=== PATIENT | male | born 1935 | race Caucasian/White ===

== ENCOUNTER 2021-01-18 06:15 | Inpatient (IN) | payer MEDICARE, BC ==
[~2021-01-18] VITALS: Ht 177.8 cm; Wt 69.9 kg
[~2021-01-18 06:15] MED LIST: TRIA75TA55 PO
[2021-01-18] MEDS ORDERED: SODIUM CHLORIDE 0.9% 1,000 ML IV ONE (06:30)
[2021-01-18] MEDS ORDERED: DOCUSATE SOD 100 MG CAP PO ONE (06:30)
[2021-01-18 07:05] LABS: Basophils # (auto) 0 10 ^3/uL (0-0.2); Basophils % (auto) 0.6 % (0.0-2.0); Eosinophils # (auto) 0.2 10 ^3/uL (0-0.8); Hemoglobin 14.9 g/dL (13.5-17.5); Monocytes # (auto) 0.7 10 ^3/uL (0-1.3)
[2021-01-18 07:07] LABS: Eosinophils % (auto) 2.6 % (0.0-7.0); Lymphocytes # (auto) 2.2 10 ^3/uL (0.4-5.4); Lymphocytes % (auto) 29.4 % (10.0-50.0); Mean Corpuscular Hemoglobin 34.5 pg (28.0-32.0); Mean Corpuscular Hgb Conc. 34.7 g/dL (32.0-36.0); Mean Corpuscular Volume 99.3 fL (80.0-100.0); Monocytes % (auto) 9.6 % (0.0-12.0); Neutrophils # (auto) 4.3 10 ^3/uL (1.6-8.6); Neutrophils % (auto) 57.8 % (37.0-80.0); Red Blood Cells 4.33 10^6/uL (4.5-5.90); Red Cell Distribution Width 13.6 % (11.8-14.3); White Blood Cell 7.4 10^3/uL (4.4-10.8)
[2021-01-18 07:28] LABS: Anion Gap 8 (5-15); Blood Urea Nitrogen 18 mg/dL (7-18); Calcium 8.6 mg/dL (8.5-10.1); Carbon Dioxide 26 mmol/L (21-32); Chloride 104 mmol/L (98-107); Glucose 80 mg/dL (74-106); Potassium 4.2 mmol/L (3.5-5.1); Sodium 138 mmol/L (136-145)
[2021-01-18 07:34] LABS: Alanine Aminotransferase 38 U/L (16-61); Alkaline Phosphatase 80 U/L (45-117); Aspartate Aminotransferase 22 U/L (15-37); BUN/Creatinine Ratio 14.6; Bilirubin, Total 0.7 mg/dL (0.2-1.0); GFR African American 72 mL/min; GFR Non-African American 60 mL/min; Total Protein 6.9 g/dL (6.4-8.2)
[2021-01-18] MEDS ORDERED: cefTRIAXone 1GM/50ML D5W 50 ML IV ONE ×2 (09:15→11:00)
[2021-01-18] MEDS ORDERED: metroNIDAZOLE 500MG/100ML 100 ML IV ONE (09:15)
[2021-01-18] MEDS ORDERED: PANTOPRAZOLE 40 MG/10 ML VIAL INJ IV ONE (09:15)
[2021-01-18] MEDS ORDERED: MORPHINE SULFATE INJECTION 2 MG/2 ML SYRG IV PRN ×2 (10:00→11:00)
[2021-01-18] MEDS ORDERED: NITROGLYCERIN 0.4 MG SL TAB SL PRN (10:00)
[2021-01-18] MEDS ORDERED: ONDANSETRON HCL 4 MG/2 ML VIAL IV PRN (11:00)
[2021-01-18] MEDS ORDERED: traMADol HCL 50 MG TAB PO PRN (11:00)
[2021-01-18] MEDS ORDERED: ACETAMINOPHEN 500 MG TAB PO PRN (11:00)
[2021-01-18] MEDS ORDERED: SODIUM CHLORIDE 0.9% 1,000 ML IV SCH (11:00)
[2021-01-18 11:41] VITALS: BP 123/79
[2021-01-18] MEDS ORDERED: metroNIDAZOLE 500MG/100ML 100 ML IV SCH (14:00)
[2021-01-19] MEDS ORDERED: cefTRIAXone 1GM/50ML D5W 50 ML IV SCH (09:00)
[2021-01-19] MEDS ORDERED: PANTOPRAZOLE 40 MG TAB PO SCH (10:00)
[2021-01-19] MEDS ORDERED: ENOXAPARIN SOD 40 MG/0.4 ML SYRINGE SC SCH (10:00)
== END 2021-01-18 13:00 | disposition left against medical advice (07) | DRG 394 ==
LOC: ER 06:15 → EDBD 06:15 → TELE 10:00
PROVIDERS: ADMIT Internal Medicine; ATTEND Internal Medicine
DX: K62.89 Other specified diseases of anus and rectum (principal); K57.92 Diverticulitis of intestine, part unspecified, without perforation or abscess without bleeding; K59.00 Constipation, unspecified; Z20.822 Contact with and (suspected) exposure to COVID-19; I10 Essential (primary) hypertension; Z53.29 Procedure and treatment not carried out because of patient's decision for other reasons; E78.5 Hyperlipidemia, unspecified; N40.0 Benign prostatic hyperplasia without lower urinary tract symptoms; R00.0 Tachycardia, unspecified; G89.29 Other chronic pain; K40.20 Bilateral inguinal hernia, without obstruction or gangrene, not specified as recurrent; K42.9 Umbilical hernia without obstruction or gangrene; N28.1 Cyst of kidney, acquired; R91.1 Solitary pulmonary nodule; Z85.820 Personal history of malignant melanoma of skin
CPT/HCPCS: 36415; 71045; 74176; 80053; 83605; 84484; 85025; 86141; 87040; 87426; 96361; 96365; 96368; 96375; C9113; G0378; J0696; J3490

== ENCOUNTER 2021-01-25 10:35 | Emergency (ER) | payer MEDICARE, BC ==
[~2021-01-25] VITALS: Ht 182.9 cm; Wt 86.2 kg
[2021-01-25 11:49] LABS: Basophils # (auto) 0.1 10 ^3/uL (0-0.2); Basophils % (auto) 0.9 % (0.0-2.0); Eosinophils # (auto) 0.2 10 ^3/uL (0-0.8); Eosinophils % (auto) 2.1 % (0.0-7.0); Hematocrit 40.7 % (41.0-53.0); Hemoglobin 14.1 g/dL (13.5-17.5); Lymphocytes # (auto) 1.2 10 ^3/uL (0.4-5.4); Lymphocytes % (auto) 13.1 % (10.0-50.0); Mean Corpuscular Hemoglobin 33.8 pg (28.0-32.0); Mean Corpuscular Hgb Conc. 34.7 g/dL (32.0-36.0); Mean Corpuscular Volume 97.3 fL (80.0-100.0); Monocytes # (auto) 0.7 10 ^3/uL (0-1.3); Monocytes % (auto) 7.3 % (0.0-12.0); Neutrophils # (auto) 6.9 10 ^3/uL (1.6-8.6); Neutrophils % (auto) 76.6 % (37.0-80.0); Red Blood Cells 4.18 10^6/uL (4.5-5.90); Red Cell Distribution Width 13.7 % (11.8-14.3); White Blood Cell 9.1 10^3/uL (4.4-10.8)
[2021-01-25 12:04] LABS: Albumin 2.9 g/dL (3.4-5.0); Anion Gap 4 (5-15); Blood Urea Nitrogen 28 mg/dL (7-18); Calcium 8.4 mg/dL (8.5-10.1); Carbon Dioxide 29 mmol/L (21-32); Chloride 106 mmol/L (98-107); Glucose 104 mg/dL (74-106); Potassium 3.8 mmol/L (3.5-5.1); Sodium 139 mmol/L (136-145)
[2021-01-25 12:09] LABS: Alanine Aminotransferase 19 U/L (16-61); Alkaline Phosphatase 87 U/L (45-117); Aspartate Aminotransferase 14 U/L (15-37); BUN/Creatinine Ratio 17.8; Bilirubin, Total 0.7 mg/dL (0.2-1.0); GFR African American 55 mL/min; GFR Non-African American 45 mL/min; Total Protein 6.7 g/dL (6.4-8.2)
[2021-01-25] MEDS ORDERED: DOCUSATE SOD 100 MG CAP PO ONE (15:30)
[2021-01-25 16:45] VITALS: BP 132/81
== END 2021-01-25 16:22 | disposition home or self-care (01) ==
LOC: ER 10:35 → EDBD 10:35 → ER 16:22
DX: K59.00 Constipation, unspecified (principal); R06.02 Shortness of breath; E46 Unspecified protein-calorie malnutrition; I10 Essential (primary) hypertension; E78.5 Hyperlipidemia, unspecified; Z68.25 Body mass index [BMI] 25.0-25.9, adult; Z79.899 Other long term (current) drug therapy
CPT/HCPCS: 36415; 71045; 74018; 80053; 84484; 85025

== ENCOUNTER 2024-03-08 18:58 | Inpatient (IN) | payer MEDICARE, BC ==
[~2024-03-08] VITALS: Ht 170.2 cm; Wt 65.1 kg
[~2024-03-08 18:58] MED LIST changes: +ATOR10TA52 PO; +BRIM0.2S17 OP; +LATA0.008 OP; +ONDA-180 PO; +PANT40TA57 PO; +TRIA37.586 PO; +TRIA75TA11 PO
[2024-03-08 19:37] VITALS: PULSE 81; RESP 17; O2SAT 95
[2024-03-08 19:44] LABS: Basophils # (auto) 0 10 ^3/uL (0-0.2); Basophils % (auto) 0.4 % (0.0-2.0); Eosinophils # (auto) 0 10 ^3/uL (0-0.8); Eosinophils % (auto) 0.3 % (0.0-7.0); Hematocrit 44.4 % (41.0-53.0); Hemoglobin 15.4 g/dL (13.5-17.5); Lymphocytes # (auto) 0.9 10 ^3/uL (0.4-5.4); Lymphocytes % (auto) 6.8 % (10.0-50.0); Mean Corpuscular Hemoglobin 33.1 pg (28.0-32.0); Mean Corpuscular Hgb Conc. 34.6 g/dL (32.0-36.0); Mean Corpuscular Volume 95.6 fL (80.0-100.0); Monocytes # (auto) 0.7 10 ^3/uL (0-1.3); Monocytes % (auto) 5.5 % (0.0-12.0); Neutrophils # (auto) 10.9 10 ^3/uL (1.6-8.6); Platelet Count (auto) 149 10^3/uL (140-450); Red Blood Cells 4.64 10^6/uL (4.5-5.90); Red Cell Distribution Width 13.4 % (11.8-14.3); White Blood Cell 12.5 10^3/uL (4.4-10.8)
[2024-03-08 20:01] LABS: Alanine Aminotransferase 17 U/L (7-40); Albumin 3.2 g/dL (3.2-4.8); Alkaline Phosphatase 95 U/L (46-116); Anion Gap 10 (5-15); Aspartate Aminotransferase 31 U/L (13-40); Blood Urea Nitrogen 16 mg/dL (9-23); Calcium 9.1 mg/dL (8.7-10.4); Carbon Dioxide 25 mmol/L (20-31); Chloride 105 mmol/L (98-107); Glucose 106 mg/dL (74-106); Potassium 3.9 mmol/L (3.5-5.1); Sodium 140 mmol/L (136-145); Total Protein 6.1 g/dL (5.7-8.2)
[2024-03-08 20:27] LABS: Lipase 24 U/L (12-53)
[2024-03-08] MEDS: SODIUM CHLORIDE 0.9% 500 ML IVB ONE (21:00)
[2024-03-08 21:35] LABS: INR 1.07 (0.9-1.15); Prothrombin Time 11.3 sec (9.3-11.8)
[2024-03-08 21:54] LABS: Erythrocyte Sedimentation Rate 7 mm/hr (0-20)
[2024-03-08 21:57] LABS: Lactic Acid w/Reflex 2.2 mmol/L (0.4-2.0)
[2024-03-08 22:37] LABS: COVID19 ANTIGEN SOFIA FIA NEGATIVE (NEGATIVE)
[2024-03-08] MEDS: cefTRIAXone 1GM/50ML D5W 50 ML IV ONE (22:45)
[2024-03-08] MEDS: metroNIDAZOLE 500MG/100ML 100 ML IV SCH (22:45)
[2024-03-08] MEDS: SODIUM CHLORIDE 0.9% 1,000 ML IV ONE ×2 (22:45→22:58)
[2024-03-08 23:01] LABS: Free T3 2.6 pg/mL (2.3-4.2)
[2024-03-08 23:02] LABS: Free T4 (Free Thyroxine) 1.05 ng/dL (0.89-1.76)
[2024-03-09] VITALS (7 sets, daily range): BP systolic 90–103; BP diastolic 50–55; PULSE 72–97; RESP 16–18; TEMP 97.6–98.2; O2SAT 93–98
[2024-03-09 00:23] LABS: Urine Bacteria None Seen /hpf (None Seen)
[2024-03-09 00:43] LABS: Amphetamine Screen, Urine Neg (NEGATIVE); Barbiturate Scree,Urine Neg (NEGATIVE); Benzodiazephine Screen, Urine Neg (NEGATIVE); Cocaine Screen, Urine Neg (NEGATIVE); Opiate Scree,Urine Neg (NEGATIVE)
[2024-03-09 00:44] LABS: Cannabinoid Screen, Urine Neg (NEGATIVE); Phencyclidine Screen, Urine Neg (NEGATIVE)
[2024-03-09 00:56] LABS: Urine Blood Negative /uL (Negative); Urine Clarity Clear (Clear); Urine Color Yellow (Yellow); Urine Hyaline Cast MOD /lpf (0 - 2); Urine Mucus FEW (None Seen); Urine Protein, UAD 1+ (Negative); Urine Specific Gravity 1.022 (1.001-1.035); Urine Urobilinogen 2 mg/dL (Negative); Urine WBC 1 /hpf (0 - 3)
[2024-03-09 00:56] LABS: Rapid Influenza A Negative (Negative); Rapid Influenza B Negative (Negative)
[2024-03-09] MEDS ORDERED: TIMO0.5S32 (02:51)
[2024-03-09] MEDS: SODIUM CHLORIDE 0.9% 1,000 ML IV SCH (05:35)
[2024-03-09] MEDS: PANTOPRAZOLE 40 MG/10 ML VIAL INJ IV SCH (05:35)
[2024-03-09 05:47] LABS: Basophils # (auto) 0 10 ^3/uL (0-0.2); Basophils % (auto) 0.3 % (0.0-2.0); Eosinophils # (auto) 0 10 ^3/uL (0-0.8); Eosinophils % (auto) 0.2 % (0.0-7.0); Hematocrit 37.2 % (41.0-53.0); Hemoglobin 12.8 g/dL (13.5-17.5); Lymphocytes # (auto) 1.1 10 ^3/uL (0.4-5.4); Lymphocytes % (auto) 10.1 % (10.0-50.0); Mean Corpuscular Hemoglobin 33.1 pg (28.0-32.0); Mean Corpuscular Hgb Conc. 34.5 g/dL (32.0-36.0); Mean Corpuscular Volume 96.1 fL (80.0-100.0); Monocytes # (auto) 0.6 10 ^3/uL (0-1.3); Monocytes % (auto) 5.3 % (0.0-12.0); Neutrophils # (auto) 9.4 10 ^3/uL (1.6-8.6); Neutrophils % (auto) 84.1 % (37.0-80.0); Platelet Count (auto) 136 10^3/uL (140-450); Red Blood Cells 3.87 10^6/uL (4.5-5.90); Red Cell Distribution Width 13.5 % (11.8-14.3); White Blood Cell 11.2 10^3/uL (4.4-10.8)
[2024-03-09 06:27] LABS: Anion Gap 9 (5-15); Carbon Dioxide 24 mmol/L (20-31); Chloride 109 mmol/L (98-107); Potassium 3.3 mmol/L (3.5-5.1); Sodium 142 mmol/L (136-145)
[2024-03-09 06:28] LABS: Calcium 8.1 mg/dL (8.7-10.4)
[2024-03-09 06:33] LABS: BUN/Creatinine Ratio 11.8 (10.0-20.0); Blood Urea Nitrogen 15 mg/dL (9-23); Glucose 122 mg/dL (74-106)
[2024-03-09] MEDS: POTASSIUM EFFERVESENT TAB 25 MEQ GT ONE (08:15)
[2024-03-09] MEDS ORDERED: POLYETHYLENE GLYCOL 17 GM PWDR PO ONE (09:45)
[2024-03-09] MEDS: ENOXAPARIN SOD 40 MG/0.4 ML SYRINGE SC SCH (10:00)
[2024-03-09] MEDS: ERGOCALCIFEROL 50,000 UNIT(1.25MG) CAP PO SCH (11:50)
[2024-03-09] MEDS: TAMSULOSIN HYDROCHLORIDE 0.4 MG CAP PO ONE (11:50)
[2024-03-09] MEDS: MAGNESIUM SULFATE 1GM/100ML 100 ML IV SCH (11:52)
[2024-03-09] MEDS: POTASSIUM EFFERVESENT TAB 25 MEQ PO ONE (13:50)
[2024-03-09] MEDS: FLEET ENEMA(ADULT) 135 ML PR ONE (17:04)
[2024-03-09] MEDS: POLYETHYLENE GLYCOL 17 GM PWDR PO ONE (17:07)
[2024-03-09] MEDS: TAMSULOSIN HYDROCHLORIDE 0.4 MG CAP PO SCH (18:25)
[2024-03-09] MEDS: ACETAMINOPHEN 500 MG TAB PO PRN (18:25)
[2024-03-09] MEDS: cefTRIAXone 1GM/50ML D5W 50 ML IV SCH (21:00)
[2024-03-10 01:00] VITALS: BP 92/53; PULSE 88; RESP 17; TEMP 98.2; O2SAT 95
[2024-03-10 05:00] VITALS: BP 106/60; PULSE 65; RESP 16; O2SAT 95
[2024-03-10 07:05] LABS: Basophils # (auto) 0 10 ^3/uL (0-0.2); Basophils % (auto) 0.4 % (0.0-2.0); Eosinophils # (auto) 0.1 10 ^3/uL (0-0.8); Eosinophils % (auto) 1.4 % (0.0-7.0); Hematocrit 33.4 % (41.0-53.0); Hemoglobin 11.7 g/dL (13.5-17.5); Lymphocytes # (auto) 1.1 10 ^3/uL (0.4-5.4); Lymphocytes % (auto) 13.3 % (10.0-50.0); Mean Corpuscular Hemoglobin 33.6 pg (28.0-32.0); Mean Corpuscular Volume 95.9 fL (80.0-100.0); Monocytes # (auto) 0.8 10 ^3/uL (0-1.3); Monocytes % (auto) 9.7 % (0.0-12.0); Neutrophils # (auto) 6.2 10 ^3/uL (1.6-8.6); Neutrophils % (auto) 75.2 % (37.0-80.0); Nucleated Red Blood Cells % 0.1 %; Platelet Count (auto) 122 10^3/uL (140-450); Red Blood Cells 3.48 10^6/uL (4.5-5.90); Red Cell Distribution Width 13.5 % (11.8-14.3); White Blood Cell 8.2 10^3/uL (4.4-10.8)
[2024-03-10 07:27] LABS: Anion Gap 5 (5-15); Carbon Dioxide 26 mmol/L (20-31); Chloride 111 mmol/L (98-107); Potassium 3.4 mmol/L (3.5-5.1); Sodium 142 mmol/L (136-145)
[2024-03-10 07:33] LABS: BUN/Creatinine Ratio 11.2 (10.0-20.0); Blood Urea Nitrogen 12 mg/dL (9-23); Glucose 92 mg/dL (74-106)
[2024-03-10 08:44] VITALS: BP 102/59; PULSE 76; RESP 18; TEMP 97.9; O2SAT 94
[2024-03-10 09:00] VITALS: BP 102/59; PULSE 76; RESP 18; TEMP 97.9; O2SAT 94
[2024-03-10] MEDS: POTASSIUM EFFERVESENT TAB 25 MEQ PO ONE (10:33)
[2024-03-10 17:00] VITALS: BP 99/61; PULSE 69; RESP 16; TEMP 97.8; O2SAT 95
[2024-03-11 07:10] VITALS: BP 104/57; PULSE 72; RESP 18; TEMP 97.9; O2SAT 91
[2024-03-11 08:00] VITALS: PULSE 62; RESP 17; O2SAT 96
[2024-03-11 09:00] VITALS: BP 115/74; PULSE 62; RESP 17; TEMP 97.8; O2SAT 96
[2024-03-11] MEDS: LACTULOSE 20Gm/30ML SOLN PO ONE (11:03)
[2024-03-11] MEDS: FLEET ENEMA(ADULT) 135 ML PR ONE (11:03)
[2024-03-11 12:30] VITALS: BP 126/77; PULSE 69; RESP 20; TEMP 97.8; O2SAT 97
[2024-03-11 16:46] VITALS: BP 122/79; PULSE 96; RESP 18; TEMP 98.1; O2SAT 95
[2024-03-11 21:00] VITALS: BP 112/78; PULSE 100; RESP 18; TEMP 97.7; O2SAT 98
[2024-03-12 05:00] VITALS: BP 103/58; PULSE 94; RESP 18; O2SAT 92
[2024-03-12 09:00] VITALS: BP 116/61; PULSE 91; RESP 18; TEMP 98.4; O2SAT 91
[2024-03-12] MEDS ORDERED: KET2TP TOP (10:35)
[2024-03-12] MEDS ORDERED: ERGO1CAP23 PO (10:35)
[2024-03-12] MEDS ORDERED: CEPH250C PO (10:35)
[2024-03-12] MEDS: KETOCONAZOLE 2 % TOPICAL CREAM 15GM TOP SCH (11:37)
[2024-03-12] MEDS: diphenhdrAMINE HCL 12.5 MG/5 ML UD PO ONE (11:37)
[2024-03-12 12:53] VITALS: BP 117/65; PULSE 53; RESP 18; TEMP 97.3; O2SAT 96
[2024-03-12] MEDS ORDERED: LACT10SO3 PO (14:28)
[2024-03-12 17:00] VITALS: BP 132/65; PULSE 92; RESP 21; TEMP 98.2; O2SAT 97
[2024-03-12 21:00] VITALS: BP 123/75; PULSE 89; RESP 20; TEMP 97.7; O2SAT 95
[2024-03-13 01:00] VITALS: BP 132/77; PULSE 83; RESP 20; O2SAT 93
[2024-03-13 05:00] VITALS: BP_SYST 111; BP_SYST 134; BP_DIAS 71; BP_DIAS 74; PULSE 75; PULSE 91; RESP 18; TEMP 98.3; O2SAT 92; O2SAT 95
[2024-03-13 09:00] VITALS: BP 140/72; PULSE 92; RESP 16; TEMP 98.2; O2SAT 96
[2024-03-13] MEDS: HYDROcodone-ACET 5/325MG TAB PO PRN (09:17)
[2024-03-13 17:40] VITALS: BP 132/72; PULSE 87; RESP 14; TEMP 98.4; O2SAT 95
[2024-03-13 20:00] VITALS: PULSE 89; RESP 20; O2SAT 95
[2024-03-14 09:00] VITALS: BP 119/65; PULSE 122; RESP 18; O2SAT 94
[2024-03-14] MEDS: CEFPODOXIME PROXETIL 200 MG TAB PO SCH (10:00)
[2024-03-14] MEDS: metroNIDAZOLE 500 MG TAB PO SCH (13:59)
[2024-03-14] MEDS: ONDANSETRON ODT 4 MG TAB PO PRN (16:03)
[2024-03-14 20:00] VITALS: PULSE 83; RESP 16; O2SAT 97
[2024-03-14] MEDS: diphenhdrAMINE HCL 12.5 MG/5 ML UD PO PRN (20:15)
[2024-03-14 22:00] VITALS: BP 121/82; PULSE 83; RESP 16; TEMP 97.8; O2SAT 97
[2024-03-15] VITALS (7 sets, daily range): BP systolic 110–126; BP diastolic 66–78; PULSE 60–79; RESP 16–18; TEMP 97.5–98.3; O2SAT 94–96
[2024-03-15] MEDS: PANTOPRAZOLE 40 MG TAB PO SCH (06:00)
[2024-03-15 07:40] LABS: Basophils # (auto) 0.1 10 ^3/uL (0-0.2); Basophils % (auto) 0.8 % (0.0-2.0); Eosinophils # (auto) 0.2 10 ^3/uL (0-0.8); Eosinophils % (auto) 2.6 % (0.0-7.0); Hematocrit 35.8 % (41.0-53.0); Hemoglobin 12.6 g/dL (13.5-17.5); Lymphocytes # (auto) 1.6 10 ^3/uL (0.4-5.4); Lymphocytes % (auto) 20.8 % (10.0-50.0); Mean Corpuscular Hemoglobin 33.5 pg (28.0-32.0); Mean Corpuscular Hgb Conc. 35.1 g/dL (32.0-36.0); Mean Corpuscular Volume 95.3 fL (80.0-100.0); Monocytes # (auto) 0.8 10 ^3/uL (0-1.3); Monocytes % (auto) 9.7 % (0.0-12.0); Neutrophils # (auto) 5.1 10 ^3/uL (1.6-8.6); Neutrophils % (auto) 66.1 % (37.0-80.0); Platelet Count (auto) 184 10^3/uL (140-450); Red Blood Cells 3.76 10^6/uL (4.5-5.90); Red Cell Distribution Width 13.5 % (11.8-14.3); White Blood Cell 7.7 10^3/uL (4.4-10.8)
[2024-03-15 07:56] LABS: Alanine Aminotransferase < 9 U/L (7-40); Albumin 2.4 g/dL (3.2-4.8); Alkaline Phosphatase 78 U/L (46-116); Anion Gap 6 (5-15); Aspartate Aminotransferase 17 U/L (13-40); BUN/Creatinine Ratio 12.1 (10.0-20.0); Bilirubin, Total 0.8 mg/dL (0.2-1.0); Blood Urea Nitrogen 11 mg/dL (9-23); Calcium 8.4 mg/dL (8.7-10.4); Carbon Dioxide 25 mmol/L (20-31); Chloride 109 mmol/L (98-107); Glucose 60 mg/dL (74-106); Magnesium 1.8 mg/dL (1.6-2.6); Potassium 3.9 mmol/L (3.5-5.1); Sodium 140 mmol/L (136-145); Total Protein 4.9 g/dL (5.7-8.2)
[2024-03-15] MEDS: Ensure HIGH Protein Chocolate 8oz Bottle PO SCH (12:00)
[2024-03-15] MEDS: SODIUM CHLORIDE 0.9% 1,000 ML IV SCH (16:20)
[2024-03-16] MEDS: MAGNESIUM SULFATE 1GM/100ML 200 ML IV ONE (01:17)
[2024-03-16] MEDS: LACTULOSE 20Gm/30ML SOLN PO ONE (01:56)
[2024-03-16 08:00] VITALS: PULSE 64; RESP 18; O2SAT 93
[2024-03-16 09:00] VITALS: BP 100/60; PULSE 60; RESP 17; TEMP 97.5; O2SAT 93
[2024-03-16 13:00] VITALS: BP 134/73; PULSE 94; RESP 17; TEMP 97.6; O2SAT 93
[2024-03-16 17:00] VITALS: BP 129/68; PULSE 72; RESP 17; TEMP 97.8; O2SAT 94
[2024-03-16 20:00] VITALS: PULSE 92; RESP 20; O2SAT 95
[2024-03-16 21:00] VITALS: BP 117/71; PULSE 92; RESP 20; TEMP 97.6; O2SAT 95
[2024-03-16] MEDS: METOPROLOL TARTRATE 25 MG TAB PO ONE (21:40)
[2024-03-16] MEDS: MORPHINE SULFATE INJ 2 MG/ml SYRG IV ONE (21:41)
[2024-03-17] VITALS (9 sets, daily range): BP systolic 117–126; BP diastolic 65–77; PULSE 64–94; RESP 18–20; TEMP 36.8; O2SAT 92–96
[2024-03-17] MEDS: PANTOPRAZOLE 40 MG/10 ML VIAL INJ IV ONE (10:41)
[2024-03-17] MEDS: ONDANSETRON HCL 4 MG/2 ML VIAL IV PRN (10:44)
== END 2024-03-17 20:33 | disposition hospice, home (50) | DRG 871 ==
LOC: EDBD 18:58 → ER 18:58 → OVERFLOW 22:40 → EAST 03-09 01:48 → WEST WING 03-09 09:02
PROVIDERS: ADMIT Internal Medicine; ATTEND Internal Medicine
DX: A41.9 Sepsis, unspecified organism (principal); J69.0 Pneumonitis due to inhalation of food and vomit; N17.0 Acute kidney failure with tubular necrosis; E44.1 Mild protein-calorie malnutrition; I50.40 Unspecified combined systolic (congestive) and diastolic (congestive) heart failure; K80.20 Calculus of gallbladder without cholecystitis without obstruction; I72.3 Aneurysm of iliac artery; K42.9 Umbilical hernia without obstruction or gangrene; N40.0 Benign prostatic hyperplasia without lower urinary tract symptoms; K21.9 Gastro-esophageal reflux disease without esophagitis; E87.6 Hypokalemia; F03.90 Unspecified dementia, unspecified severity, without behavioral disturbance, psychotic disturbance, mood disturbance, and anxiety; E78.5 Hyperlipidemia, unspecified; Z20.822 Contact with and (suspected) exposure to COVID-19; N28.1 Cyst of kidney, acquired; E83.42 Hypomagnesemia; K62.89 Other specified diseases of anus and rectum; D69.6 Thrombocytopenia, unspecified; K22.2 Esophageal obstruction; Z68.22 Body mass index [BMI] 22.0-22.9, adult; K59.09 Other constipation; L30.4 Erythema intertrigo; I11.0 Hypertensive heart disease with heart failure; J98.4 Other disorders of lung
CPT/HCPCS: 36415; 71045; 74018; 74176; 76705; 80048; 80053; 80307; 81001; 82270; 82306; 82607; 83036; 83605; 83690; 83735; 83880; 84439; 84443; 84481; 85025; 85048; 85610; 85652; 85730; 86141; 87040; 87045; 87086; 87426; 87427; 87493; 87804; 97163; G0378; J2405; J2470; J3490; Q0162